=== PATIENT | male | born 1950 | race Native Hawaiian/Other Pacific Islander ===

== ENCOUNTER 2016-07-17 10:11 | Outpatient (CLI) | payer OTHER ==
[2016-07-17 10:27] LABS: PLATELET COUNT 183 K/uL (142-355)
[2016-07-17 11:03] LABS: POTASSIUM 4.1 mmol/L (3.6-5.2); SODIUM 135 mmol/L (136-145)
== END 2016-07-17 23:02 | disposition home or self-care (01) ==
LOC: LABW 10:11
PROVIDERS: Nurse Practitioner
DX: E11.9 Type 2 diabetes mellitus without complications (principal); I10 Essential (primary) hypertension; Z12.5 Encounter for screening for malignant neoplasm of prostate; E55.9 Vitamin D deficiency, unspecified; E78.4 Other hyperlipidemia
CPT/HCPCS: 36415; 80053; 80061; 82043; 82306; 82570; 83036; 84153; 85027

== ENCOUNTER 2017-04-11 15:29 | Outpatient (CLI) | payer OTHER ==
[2017-04-11 16:05] LABS: POTASSIUM 4.1 mmol/L (3.6-5.2); SODIUM 138 mmol/L (136-145)
== END 2017-04-11 19:02 | disposition home or self-care (01) ==
LOC: LABW 15:29
PROVIDERS: Internal Medicine Cardiovascular Disease
DX: I50.9 Heart failure, unspecified (principal); Z79.899 Other long term (current) drug therapy; Z51.81 Encounter for therapeutic drug level monitoring
CPT/HCPCS: 36415; 80048; 83880

== ENCOUNTER 2017-04-24 07:06 | Outpatient (CLI) | payer OTHER ==
[~2017-04-24] VITALS: Ht 170.2 cm; Wt 122.0 kg
== END 2017-04-24 19:01 | disposition home or self-care (01) ==
LOC: NM 07:06
DX: R07.89 Other chest pain (principal); R06.09 Other forms of dyspnea
CPT/HCPCS: 93306; A9500; J2785

== ENCOUNTER 2019-03-21 08:52 | Outpatient (CLI) | payer OTHER | END 2019-03-21 21:27 | disposition home or self-care (01) | LOC: RAD 08:52 | DX: Z01.810 Encounter for preprocedural cardiovascular examination (principal); Z01.811 Encounter for preprocedural respiratory examination | CPT/HCPCS: 93005 ==

== ENCOUNTER 2019-07-02 12:14 | Outpatient (CLI) | payer OTHER | END 2019-07-02 20:24 | disposition home or self-care (01) | LOC: LABW 12:14 | PROVIDERS: Internal Medicine Cardiovascular Disease | DX: E78.49 Other hyperlipidemia (principal) | CPT/HCPCS: 36415; 80061 ==

== ENCOUNTER 2019-10-30 14:45 | Outpatient (CLI) | payer OTHER | END 2019-10-30 18:59 | disposition home or self-care (01) | LOC: CT 14:45 | DX: R10.9 Unspecified abdominal pain (principal); R11.2 Nausea with vomiting, unspecified; R19.7 Diarrhea, unspecified | CPT/HCPCS: 36415; 82565; 84520; Q9963 ==

== ENCOUNTER 2020-07-13 09:10 | Outpatient (CLI) | payer OTHER | END 2020-07-13 23:05 | disposition home or self-care (01) | LOC: RAD 09:10 | PROVIDERS: ATTEND Nurse Practitioner Family | DX: M25.512 Pain in left shoulder (principal); M25.511 Pain in right shoulder; M54.2 Cervicalgia ==

== ENCOUNTER 2021-05-11 10:47 | Outpatient (CLI) | payer OTHER ==
[2021-05-11 11:29] LABS: PLATELET COUNT 200 K/uL (142-355)
[2021-05-11 11:48] LABS: POTASSIUM 4.8 mmol/L (3.6-5.2)
== END 2021-05-11 20:24 | disposition home or self-care (01) ==
LOC: LABW 10:47
PROVIDERS: Nurse Practitioner Family; ATTEND Internal Medicine Cardiovascular Disease
DX: E11.9 Type 2 diabetes mellitus without complications (principal); E55.9 Vitamin D deficiency, unspecified; E53.8 Deficiency of other specified B group vitamins; Z79.899 Other long term (current) drug therapy; I50.9 Heart failure, unspecified
CPT/HCPCS: 36415; 80053; 80061; 82306; 82607; 83036; 83880; 84443; 85027

== ENCOUNTER 2021-05-25 13:00 | Outpatient (CLI) | payer OTHER | END 2021-05-25 19:46 | disposition home or self-care (01) | LOC: RESP 13:00 | PROVIDERS: ATTEND Internal Medicine Cardiovascular Disease | DX: I10 Essential (primary) hypertension (principal) ==

== ENCOUNTER 2021-09-19 13:58 | Outpatient (CLI) | payer OTHER ==
[2021-09-19 14:28] LABS: PLATELET COUNT 208 K/uL (142-355)
[2021-09-19 14:57] LABS: POTASSIUM 4.7 mmol/L (3.6-5.2)
== END 2021-09-19 20:16 | disposition home or self-care (01) ==
LOC: LAB 13:58
PROVIDERS: ATTEND Nurse Practitioner Family
DX: E11.9 Type 2 diabetes mellitus without complications (principal); E78.49 Other hyperlipidemia; R53.83 Other fatigue; Z79.899 Other long term (current) drug therapy; G47.30 Sleep apnea, unspecified; M19.90 Unspecified osteoarthritis, unspecified site; I10 Essential (primary) hypertension; E55.9 Vitamin D deficiency, unspecified; E53.8 Deficiency of other specified B group vitamins
CPT/HCPCS: 80053; 80061; 82306; 82607; 83036; 84439; 84443; 85027

== ENCOUNTER 2022-05-16 07:56 | Outpatient (CLI) | payer OTHER | END 2022-05-16 19:17 | disposition home or self-care (01) | LOC: MRI 07:56 | PROVIDERS: ATTEND Orthopaedic Surgery | DX: M54.59 Other low back pain (principal); M54.16 Radiculopathy, lumbar region; M51.37 Other intervertebral disc degeneration, lumbosacral region ==